=== PATIENT | male | born 1960 | race Caucasian/White ===

== ENCOUNTER 2022-10-06 12:03 | Day surgery (SDC) | payer OTHER ==
[~2022-10-06] VITALS: Ht 180.3 cm; Wt 111.6 kg
[2022-10-06] VITALS (15 sets, daily range): BP systolic 115–151; BP diastolic 65–89; PULSE 56–85; RESP 11–18; TEMP 97.9; O2SAT 93–98
[2022-10-06] MEDS ORDERED: MIDAZolam 1mg/ml 10ml vial IV ONE (12:30)
[2022-10-06] MEDS ORDERED: normal saline 1000ml 1,000 ML IV SCH (12:30)
[2022-10-06] MEDS ORDERED: fentaNYL/PF 50MCG/1 ML 2ML syringe IV ONE (12:30)
[2022-10-06] MEDS ORDERED: SOTA80TA73 PO (12:50)
[2022-10-06] MEDS ORDERED: ATOR10TA70 PO (12:50)
[2022-10-06] MEDS ORDERED: NIFE90TA70 PO (12:50)
[2022-10-06] MEDS ORDERED: APIX5TAB5 PO (12:50)
[2022-10-06] MEDS ORDERED: VALS1TAB81 PO (12:50)
== END 2022-10-06 15:05 | disposition home or self-care (01) ==
LOC: SSTAY O 12:03
PROVIDERS: ATTEND Student in an Organized Health Care Education/Training Program
DX: I48.91 Unspecified atrial fibrillation (principal); I10 Essential (primary) hypertension; E78.5 Hyperlipidemia, unspecified; G47.33 Obstructive sleep apnea (adult) (pediatric); Z79.899 Other long term (current) drug therapy; Z79.01 Long term (current) use of anticoagulants
CPT/HCPCS: 92960; 93005; J2250; J3010; J7030; A4620